=== PATIENT | male | born 1960 | race Caucasian/White ===

== ENCOUNTER 2019-04-30 09:21 | Outpatient (CLI) | payer OTHER, MEDICARE, SELFPAY ==
[2019-04-30 10:48] LABS: Alanine Aminotransferase 36 U/L (16-63); Albumin Level 4.5 g/dL (3.4-5.0); Alkaline Phosphatase 46 U/L (46-116); Anion Gap 16.5 mmol/L (7-16); Aspartate Amino Transferase 21 U/L (15-37); Bilirubin,Total 0.3 mg/dL (0.00-1.00); Blood Urea Nitrogen 19 mg/dL (7-18); Calcium 9.5 mg/dL (8.5-10.1); Carbon Dioxide 26 mmol/L (21-32); Chloride 104 mmol/L (98-108); Cholesterol 175 mg/dL (0-200); Creatine Kinase 197 U/L (39-308); Estimated Glomerular Filt Rate > 60; Glucose 110 mg/dL (70-99); HDL Direct 55 mg/dL (40-60); LDL Cholesterol Calculated 106 mg/dL (<130); Osmolality Calculated 297 mOsm/kg (285-295); Potassium 4.5 mmol/L (3.5-5.1); Sodium 142 mmol/L (136-145); Triglycerides 70 mg/dL (0-150)
== END 2019-04-30 09:22 | disposition home or self-care (01) ==
LOC: CHSLAB 09:26
PROVIDERS: PCP Family Medicine; Visit Provider Family Medicine
DX: E78.2 Mixed hyperlipidemia (principal)
CPT/HCPCS: 36415; 80053; 80061; 82550

== ENCOUNTER 2020-02-03 09:35 | Outpatient (CLI) | payer OTHER, MEDICARE, SELFPAY ==
--- NOTE | ~2020-02-03 | XR_ITS ---
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 TECHNIQUE: Right foot dorsoplantar, oblique projections obtained and reviewed. Right ankle frontal, lateral and oblique projections obtained and reviewed. There is no prior study for comparison. FINDINGS: Right metatarsal bones unremarkable. There is fusion with screws ridging the subtalar celio int. Osseous fusion of this joint also suspected. There are 3 other screws fusing midfoot joints, 2 o f which are fractured. Also osseous fusion of multiple midfoot joints. No evidence of metatarsal stre ss fracture. There are no bony erosions identified. There is medial tilt of the talus with respect to the tibial plafond and with evidence of moderate an kle joint osteoarthritis. IMPRESSION: 1. Surgical and osseous fusion of right hind and midfoot joints. 2. Two fractured midfoot screws. 3. Medial talar tilt at the ankle joint. Reviewed, dictated and finalized at location A. NDED INSURANCE CLERK IMPRESSION: 1. Surgical and osseous fusion of right hind and midfoot joints. 2. Two fractured midfoot screws. 3. Medial talar tilt at the ankle joint.
--- NOTE | ~2020-02-03 | XR_ITS ---
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 TECHNIQUE: Left foot dorsoplantar, oblique projections obtained and reviewed. Left ankle frontal, la teral and oblique projections obtained and reviewed. Correlation is made to contralateral foot, ankle same date. Comparison made to left ankle exam from 10/12/2018 FINDINGS: Surgical fusion of the subtalar joint with solid bone bridging. Surgical fusion hardware at the mid foot also with multiple joints demonstrate solid bone bridging. No hardware fracture. There is severe medial tilt of the talus at the ankle joint with chronic remodeling of the tibial lisa fond and advanced osteoarthritis. There is an old 5th metatarsal fracture. The toes are flexed. There are no bony erosions identified. There are no acute fractures identified. IMPRESSION: 1. Left mid and hindfoot arthrodesis. 2. Severe medial tilt to talus at the plafond, superimposed osteoarthritis. Reviewed, dictated and finalized at location A. LE MOLDER IMPRESSION: 1. Left mid and hindfoot arthrodesis. 2. Severe medial tilt to talus at the plafond, superimposed osteoarthritis.
== END 2020-02-03 09:36 | disposition home or self-care (01) ==
PROVIDERS: PCP Family Medicine; Visit Provider Podiatrist
DX: M21.6X1 Other acquired deformities of right foot (principal); M79.672 Pain in left foot; M79.671 Pain in right foot
CPT/HCPCS: 73610; 73620

== ENCOUNTER 2020-06-03 08:38 | Outpatient (CLI) | payer OTHER, MEDICARE, SELFPAY ==
[2020-06-03 08:50] LABS: Basophils Absolute Auto 0.03 K/mm3 (0.00-0.10); Basophils Percent Auto 0.7 % (0.0-1.0); Eosinophils Percent Auto 4.7 % (1.0-6.0); Hemoglobin 13.7 g/dL (14.0-18.0); Immature Granulocyte Absolute 0.01 K/mm3 (0.00-0.00); Immature Granulocyte Percent A 0.2 % (0.0-0.0); Lymphocytes Percent Auto 35.5 % (18.0-42.0); Mean Corpuscular HGB Conc 32.6 g/dL (32.0-36.0); Mean Corpuscular Hemoglobin 28.3 pg (27.0-31.0); Mean Corpuscular Volume 86.8 fL (78.0-102.0); Mean Platelet Volume 11.1 fl (8.7-11.0); Monocytes Percent Auto 9.5 % (2.0-11.0); Neutrophils Absolute Auto 2.1 K/mm3 (1.7-7.2); Neutrophils Percent Auto 49.4 % (50.0-70.0); Platelet Count Result 242 K/mm3 (150-420); Red Blood Count 4.84 M/mm3 (4.70-6.10); Red Cell Distribution Width 13.2 % (11.6-14.4); White Blood Count 4.2 K/mm3 (4.8-10.8)
[2020-06-03 09:30] LABS: Alanine Aminotransferase 38 U/L (16-63); Albumin Level 4.3 g/dL (3.4-5.0); Alkaline Phosphatase 44 U/L (46-116); Anion Gap 10 mmol/L (8-16); Aspartate Amino Transferase 18 U/L (15-37); Bilirubin,Total 0.4 mg/dL (0.00-1.00); Blood Urea Nitrogen 25 mg/dL (7-18); Carbon Dioxide 28 mmol/L (21-32); Chloride 101 mmol/L (98-108); Cholesterol 160 mg/dL (0-200); Estimated Glomerular Filt Rate > 60; Glucose 108 mg/dL (70-99); HDL Direct 46 mg/dL (40-60); LDL Cholesterol Calculated 97 mg/dL (<130); Osmolality Calculated 293 mOsm/kg (285-295); Potassium 4.5 mmol/L (3.5-5.1); Sodium 139 mmol/L (136-145); Total Protein 7.6 g/dL (6.4-8.2); Triglycerides 84 mg/dL (0-150)
== END 2020-06-03 08:39 | disposition home or self-care (01) ==
LOC: CHSLAB 08:40
PROVIDERS: PCP Family Medicine; Visit Provider Family Medicine
DX: N18.2 Chronic kidney disease, stage 2 (mild) (principal); E78.2 Mixed hyperlipidemia
CPT/HCPCS: 36415; 80053; 80061; 85025

== ENCOUNTER 2020-06-30 08:29 | Outpatient (CLI) | payer OTHER, MEDICARE, SELFPAY ==
[2020-06-30 08:40] LABS: Basophils Absolute Auto 0.03 K/mm3 (0.00-0.10); Basophils Percent Auto 0.7 % (0.0-1.0); Eosinophils Absolute Auto 0.22 K/mm3 (0.02-0.50); Eosinophils Percent Auto 5.1 % (1.0-6.0); Hemoglobin 13.2 g/dL (14.0-18.0); Immature Granulocyte Absolute 0.01 K/mm3 (0.00-0.00); Immature Granulocyte Percent A 0.2 % (0.0-0.0); Lymphocytes Absolute Auto 1.57 K/mm3 (1.10-4.50); Lymphocytes Percent Auto 36.3 % (18.0-42.0); Mean Corpuscular Hemoglobin 28.9 pg (27.0-31.0); Mean Corpuscular Volume 87.5 fL (78.0-102.0); Mean Platelet Volume 10.8 fl (8.7-11.0); Monocytes Absolute Auto 0.39 K/mm3 (0.10-0.90); Neutrophils Absolute Auto 2.1 K/mm3 (1.7-7.2); Neutrophils Percent Auto 48.7 % (50.0-70.0); Platelet Count Result 246 K/mm3 (150-420); Red Blood Count 4.57 M/mm3 (4.70-6.10); Red Cell Distribution Width 13.5 % (11.6-14.4); White Blood Count 4.3 K/mm3 (4.8-10.8)
== END 2020-06-30 08:30 | disposition home or self-care (01) ==
LOC: CHSLAB 08:34
PROVIDERS: PCP Family Medicine; Visit Provider Family Medicine
DX: E78.2 Mixed hyperlipidemia (principal); D72.819 Decreased white blood cell count, unspecified
CPT/HCPCS: 36415; 85025

== ENCOUNTER 2020-08-11 08:36 | Outpatient (CLI) | payer OTHER, MEDICARE, SELFPAY ==
[2020-08-11 09:01] LABS: Basophils Absolute Auto 0.02 K/mm3 (0.00-0.10); Basophils Percent Auto 0.5 % (0.0-1.0); Eosinophils Absolute Auto 0.21 K/mm3 (0.02-0.50); Eosinophils Percent Auto 4.8 % (1.0-6.0); Hematocrit 40.8 % (40.0-54.0); Hemoglobin 13.7 g/dL (14.0-18.0); Immature Granulocyte Absolute 0.01 K/mm3 (0.00-0.00); Immature Granulocyte Percent A 0.2 % (0.0-0.0); Lymphocytes Absolute Auto 1.61 K/mm3 (1.10-4.50); Lymphocytes Percent Auto 36.8 % (18.0-42.0); Mean Corpuscular HGB Conc 33.6 g/dL (32.0-36.0); Mean Corpuscular Hemoglobin 29.5 pg (27.0-31.0); Mean Corpuscular Volume 87.7 fL (78.0-102.0); Mean Platelet Volume 11.9 fl (8.7-11.0); Monocytes Absolute Auto 0.38 K/mm3 (0.10-0.90); Monocytes Percent Auto 8.7 % (2.0-11.0); Neutrophils Absolute Auto 2.1 K/mm3 (1.7-7.2); Platelet Count Result 246 K/mm3 (150-420); Red Blood Count 4.65 M/mm3 (4.70-6.10); Red Cell Distribution Width 13.2 % (11.6-14.4); White Blood Count 4.4 K/mm3 (4.8-10.8)
== END 2020-08-11 08:37 | disposition home or self-care (01) ==
PROVIDERS: PCP Family Medicine; Visit Provider Family Medicine
DX: D72.819 Decreased white blood cell count, unspecified (principal)
CPT/HCPCS: 36415; 85025

== ENCOUNTER 2020-09-28 09:01 | Outpatient (CLI) | payer OTHER, MEDICARE, SELFPAY ==
[2020-09-28 09:24] LABS: Basophils Absolute Auto 0.03 K/mm3 (0.00-0.10); Basophils Percent Auto 0.7 % (0.0-1.0); Eosinophils Absolute Auto 0.18 K/mm3 (0.02-0.50); Eosinophils Percent Auto 4.3 % (1.0-6.0); Hematocrit 41.5 % (40.0-54.0); Hemoglobin 13.7 g/dL (14.0-18.0); Immature Granulocyte Absolute 0.01 K/mm3 (0.00-0.00); Immature Granulocyte Percent A 0.2 % (0.0-0.0); Lymphocytes Percent Auto 38.3 % (18.0-42.0); Mean Corpuscular Volume 87.9 fL (78.0-102.0); Mean Platelet Volume 11.4 fl (8.7-11.0); Monocytes Absolute Auto 0.35 K/mm3 (0.10-0.90); Monocytes Percent Auto 8.4 % (2.0-11.0); Neutrophils Percent Auto 48.1 % (50.0-70.0); Platelet Count Result 261 K/mm3 (150-420); Red Blood Count 4.72 M/mm3 (4.70-6.10); Red Cell Distribution Width 13.2 % (11.6-14.4); White Blood Count 4.2 K/mm3 (4.8-10.8)
[2020-09-28 10:37] LABS: Alanine Aminotransferase 34 U/L (16-63); Albumin Level 4.3 g/dL (3.4-5.0); Alkaline Phosphatase 43 U/L (46-116); Anion Gap 12 mmol/L (8-16); Aspartate Amino Transferase 19 U/L (15-37); Bilirubin,Total 0.3 mg/dL (0.00-1.00); Blood Urea Nitrogen 21 mg/dL (7-18); Calcium 9.5 mg/dL (8.5-10.1); Carbon Dioxide 25 mmol/L (21-32); Chloride 105 mmol/L (98-108); Estimated Glomerular Filt Rate > 60; Ferritin 398 ng/mL (26-388); Folic Acid 18.2 ng/mL (8.6->20); Glucose 104 mg/dL (70-99); Lactate Dehydrogenase 127 U/L (85-227); Osmolality Calculated 297 mOsm/kg (285-295); Potassium 4.9 mmol/L (3.5-5.1); Sodium 142 mmol/L (136-145); Total Protein 7.4 g/dL (6.4-8.2); Vitamin B12 303 pg/mL (193-986)
== END 2020-09-28 09:02 | disposition home or self-care (01) ==
LOC: CHSLAB 09:04
PROVIDERS: PCP Family Medicine; Visit Provider Internal Medicine Hematology & Oncology
DX: D72.819 Decreased white blood cell count, unspecified (principal); D50.9 Iron deficiency anemia, unspecified
CPT/HCPCS: 36415; 80053; 82607; 82728; 82746; 83615; 85025; 86038

== ENCOUNTER 2020-10-05 07:45 | Outpatient (CLI) | payer OTHER, MEDICARE, SELFPAY ==
--- NOTE | ~2020-10-05 | US_ITS ---
EXAMINATION: US abdomen complete DATE: 10/05/2020 08:17 INDICATION: Leukopenia TECHNIQUE: Multiple grayscale and Doppler ultrasound images of the abdomen were obtained. COMPARISON: None available FINDINGS: The head and body of the pancreas are normal. The pancreatic tail is obscured by bowel gas. The liver is normal with normal echogenicity and echotexture. No surface nodularity. Normal hepatope betsy flow in the main portal vein. The gallbladder is normal with no abnormal wall thickening, pericho lecystic fluid or stones. The normal common bile duct measures 3 mm. There was no sonographic Valdivia sign. The visualized portions of the aorta and inferior vena cava are normal. The right kidney measures 10.1 x 5.6 x 6.0 cm and contains a 2.5 cm cyst. The left kidney measures 10 .7 x 6.0 x 5.6 cm. The kidneys demonstrate normal parenchymal echogenicity. There is no hydronephrosi s. The spleen is normal in appearance and measures 10.9 cm. IMPRESSION: 1. No sonographic correlate for the patient's symptoms. Reviewed, dictated and finalized at location A.
== END 2020-10-05 07:46 | disposition home or self-care (01) ==
LOC: CHSIMG 07:47
PROVIDERS: PCP Family Medicine; Visit Provider Internal Medicine Hematology & Oncology
DX: D72.819 Decreased white blood cell count, unspecified (principal)
CPT/HCPCS: 76700

== ENCOUNTER 2020-12-28 15:49 | Outpatient (CLI) | payer OTHER, MEDICARE, SELFPAY ==
--- NOTE | ~2020-12-28 | XR_ITS ---
XR knee RT 3V 12/28/2020 16:08 Indication: Right knee pain Procedure: 3 views right knee Comparison: No prior studies for comparison. Findings: No fracture, subluxation or dislocation. No significant joint space narrowing. No focal sof t tissue abnormality. No foreign bodies. Impression: 1: No significant bone or joint abnormality. Reviewed, dictated and finalized at location A. Impression: 1: No significant bone or joint abnormality.
== END 2020-12-28 15:50 | disposition home or self-care (01) ==
LOC: CHSIMG 15:52
PROVIDERS: PCP Family Medicine; Visit Provider Family Medicine
DX: M25.561 Pain in right knee (principal)
CPT/HCPCS: 73562

== ENCOUNTER 2021-02-02 11:21 | Outpatient (CLI) | payer OTHER, MEDICARE, SELFPAY ==
[2021-02-02 11:39] LABS: Basophils Absolute Auto 0.04 K/mm3 (0.00-0.10); Basophils Percent Auto 0.6 % (0.0-1.0); Eosinophils Absolute Auto 0.14 K/mm3 (0.02-0.50); Eosinophils Percent Auto 2.2 % (1.0-6.0); Hematocrit 42.8 % (40.0-54.0); Hemoglobin 14.2 g/dL (14.0-18.0); Immature Granulocyte Absolute 0.02 K/mm3 (0.00-0.00); Immature Granulocyte Percent A 0.3 % (0.0-0.0); Lymphocytes Absolute Auto 1.52 K/mm3 (1.10-4.50); Lymphocytes Percent Auto 24.1 % (18.0-42.0); Mean Corpuscular HGB Conc 33.2 g/dL (32.0-36.0); Mean Corpuscular Hemoglobin 29.2 pg (27.0-31.0); Mean Corpuscular Volume 88.1 fL (78.0-102.0); Mean Platelet Volume 11.5 fl (8.7-11.0); Monocytes Percent Auto 6.3 % (2.0-11.0); Neutrophils Absolute Auto 4.2 K/mm3 (1.7-7.2); Neutrophils Percent Auto 66.5 % (50.0-70.0); Platelet Count Result 270 K/mm3 (150-420); Red Blood Count 4.86 M/mm3 (4.70-6.10); Red Cell Distribution Width 13.5 % (11.6-14.4); White Blood Count 6.3 K/mm3 (4.8-10.8)
[2021-02-02 13:13] LABS: Anion Gap 11 mmol/L (8-16); Blood Urea Nitrogen 22 mg/dL (7-18); Calcium 9.3 mg/dL (8.5-10.1); Carbon Dioxide 27 mmol/L (21-32); Chloride 103 mmol/L (98-108); Estimated Glomerular Filt Rate > 60; Ferritin 592 ng/mL (26-388); Glucose 106 mg/dL (70-99); Iron 88 ug/dL (65-175); Osmolality Calculated 295 mOsm/kg (285-295); Percent Iron Saturation 22 % (12-57); Sodium 141 mmol/L (136-145); Vitamin B12 472 pg/mL (193-986)
[2021-02-02 13:16] LABS: Folic Acid > 20.0 ng/mL (8.6->20)
== END 2021-02-02 11:22 | disposition home or self-care (01) ==
LOC: CHSLAB 11:23
PROVIDERS: PCP Family Medicine; Visit Provider Internal Medicine Hematology & Oncology
DX: D64.9 Anemia, unspecified (principal)
CPT/HCPCS: 36415; 80048; 82607; 82728; 82746; 83540; 83550; 85025

== ENCOUNTER 2021-02-11 10:45 | Outpatient (CLI) | payer OTHER, MEDICARE, SELFPAY ==
[2021-02-16 18:30] LABS: Testosterone Free 68.3 pg/mL (35.0-155.0); Testosterone Total 371 ng/dL (250-1100)
== END 2021-02-11 10:46 | disposition home or self-care (01) ==
PROVIDERS: PCP Family Medicine; Visit Provider Internal Medicine Hematology & Oncology
DX: R53.83 Other fatigue (principal)
CPT/HCPCS: 36415; 84402; 84403

== ENCOUNTER 2021-07-09 09:05 | Outpatient (CLI) | payer OTHER, MEDICARE, SELFPAY ==
[2021-07-09 09:53] LABS: Alanine Aminotransferase 42 U/L (16-63); Albumin Level 4.4 g/dL (3.4-5.0); Alkaline Phosphatase 47 U/L (46-116); Anion Gap 9 mmol/L (8-16); Aspartate Amino Transferase 25 U/L (15-37); Bilirubin,Total 0.4 mg/dL (0.00-1.00); Blood Urea Nitrogen 20 mg/dL (7-18); Calcium 9.3 mg/dL (8.5-10.1); Carbon Dioxide 28 mmol/L (21-32); Chloride 103 mmol/L (98-108); Cholesterol 192 mg/dL (0-200); Estimated Glomerular Filt Rate > 60; Glucose 111 mg/dL (70-99); HDL Direct 54 mg/dL (40-60); LDL Cholesterol Calculated 117 mg/dL (<130); Osmolality Calculated 293 mOsm/kg (285-295); Potassium 4.1 mmol/L (3.5-5.1); Sodium 140 mmol/L (136-145); Thyroid Stimulating Hormone 1.08 uIU/mL (0.36-3.74); Total Protein 8.2 g/dL (6.4-8.2); Triglycerides 105 mg/dL (0-150)
== END 2021-07-09 09:06 | disposition home or self-care (01) ==
LOC: CHSLAB 09:08
PROVIDERS: PCP Family Medicine; Visit Provider Family Medicine
DX: E78.1 Pure hyperglyceridemia (principal)
CPT/HCPCS: 36415; 80053; 80061; 84443

== ENCOUNTER 2022-09-30 08:49 | Outpatient (CLI) | payer OTHER, MEDICARE, SELFPAY ==
[2022-09-30 09:05] LABS: Basophils Absolute Auto 0.04 K/mm3 (0.00-0.10); Basophils Percent Auto 0.7 % (0.0-1.0); Eosinophils Absolute Auto 0.29 K/mm3 (0.02-0.50); Eosinophils Percent Auto 5.4 % (1.0-6.0); Hematocrit 40.3 % (40.0-54.0); Hemoglobin 13.7 g/dL (14.0-18.0); Immature Granulocyte Absolute 0.03 K/mm3 (0.00-0.00); Immature Granulocyte Percent A 0.6 % (0.0-0.0); Lymphocytes Absolute Auto 1.62 K/mm3 (1.10-4.50); Mean Corpuscular Hemoglobin 30.2 pg (27.0-31.0); Mean Platelet Volume 11.2 fl (8.7-11.0); Monocytes Absolute Auto 0.44 K/mm3 (0.10-0.90); Monocytes Percent Auto 8.1 % (2.0-11.0); Neutrophils Percent Auto 55.2 % (50.0-70.0); Platelet Count Result 252 K/mm3 (150-420); Red Blood Count 4.53 M/mm3 (4.70-6.10); Red Cell Distribution Width 13.5 % (11.6-14.4); White Blood Count 5.4 K/mm3 (4.8-10.8)
[2022-09-30 09:56] LABS: Alanine Aminotransferase 40 U/L (16-63); Albumin Level 4.3 g/dL (3.4-5.0); Alkaline Phosphatase 47 U/L (46-116); Anion Gap 9 mmol/L (8-16); Aspartate Amino Transferase 18 U/L (15-37); Bilirubin,Total 0.3 mg/dL (0.00-1.00); Blood Urea Nitrogen 20 mg/dL (7-18); Calcium 9.5 mg/dL (8.5-10.1); Carbon Dioxide 27 mmol/L (21-32); Chloride 106 mmol/L (98-108); Cholesterol 167 mg/dL (0-200); Estimated Glomerular Filt Rate > 60; Glucose 105 mg/dL (70-99); HDL Direct 47 mg/dL (40-60); LDL Cholesterol Calculated 99 mg/dL (<130); Osmolality Calculated 296 mOsm/kg (285-295); Potassium 4.7 mmol/L (3.5-5.1); Prostate Specific Antigen 0.7 ng/mL (< OR = 4.0); Sodium 142 mmol/L (136-145); Total Protein 7.4 g/dL (6.4-8.2); Triglycerides 106 mg/dL (0-150)
[2022-09-30 14:23] LABS: Ferritin 593 ng/mL (26-388); Iron 88 ug/dL (65-175); Percent Iron Saturation 23 % (12-57)
== END 2022-09-30 08:50 | disposition home or self-care (01) ==
LOC: CHSLAB 08:51
PROVIDERS: PCP Family Medicine; Visit Provider Family Medicine
DX: N18.2 Chronic kidney disease, stage 2 (mild) (principal); E78.2 Mixed hyperlipidemia; Z12.5 Encounter for screening for malignant neoplasm of prostate
CPT/HCPCS: 36415; 80053; 80061; 82728; 83540; 83550; 84153; 85025; G0103

== ENCOUNTER 2023-04-04 10:06 | Outpatient (CLI) | payer OTHER, MEDICARE, SELFPAY | END 2023-04-04 10:07 | disposition home or self-care (01) | PROVIDERS: PCP Family Medicine; Visit Provider Specialist | DX: C44.311 Basal cell carcinoma of skin of nose (principal) | CPT/HCPCS: 88305 ==

== ENCOUNTER 2023-04-17 07:34 | Outpatient (CLI) | payer OTHER, MEDICARE, SELFPAY ==
--- NOTE | 2023-04-17 07:43 | EST_ITS ---
Patient Info Name: FRANTZ MAI Age: 62 years : 1960 Gender: Male Ht: 70 in Wt: 195 lbs BSA: 2.11 m2 HR: 62 bpm BP: 125 / 77 mmHg Heart Rhythm: Sinus Rhythm Technical Quality: Good Exam Date: 04/17/2023 8:40 AM Exam Location: Echo Lab Exam Type: Stress Test Study Info A regadenoson stress test was performed. History/Risk Factors Dyslipidemia: Yes Family History: Coronary Artery Disease Summary 1. 1. Negative lexiscan stress test for ischemic ST changes by ECG criteria. 2. 2. Stable hemodynamics throughout the test. 3. 3. Nuclear scan to follow and will be reported separately. Please correlate with it. Protocol: LEXISCAN Stress ECG Details Stage: REST Duration (min): 1 min : 35 sec HR (bpm): 60 SBP (mmHg): 125 DBP (mmHg): 77 Stage: REST Duration (min): 38 min : 17 sec HR (bpm): 69 SBP (mmHg): 125 DBP (mmHg): 77 Stage: STAGE 1 Duration (min): 0 min : 15 sec HR (bpm): 69 SBP (mmHg): 125 DBP (mmHg): 77 Stage: RECOVERY Duration (min): 0 min : 44 sec HR (bpm): 86 SBP (mmHg): 125 DBP (mmHg): 77 Stage: RECOVERY Duration (min): 1 min : 44 sec HR (bpm): 76 SBP (mmHg): 125 DBP (mmHg): 77 Stage: RECOVERY Duration (min): 2 min : 44 sec HR (bpm): 78 SBP (mmHg): 153 DBP (mmHg): 83 Stage: RECOVERY Duration (min): 3 min : 44 sec HR (bpm): 77 SBP (mmHg): 147 DBP (mmHg): 81 Stage: RECOVERY Duration (min): 4 min : 44 sec HR (bpm): 72 SBP (mmHg): 136 DBP (mmHg): 86 Stage: RECOVERY Duration (min): 5 min : 44 sec HR (bpm): 71 SBP (mmHg): 137 DBP (mmHg): 82 Stage: RECOVERY Duration (min): 6 min : 21 sec HR (bpm): --- SBP (mmHg): 137 DBP (mmHg): 82 Rest HR: 69 bpm Peak HR: 86 bpm Rest Sys BP: 125 mmHg Peak Sys BP: 153 mmHg Max Pred HR: 158 bpm % Max Pred HR: 54 % Target HR: 134 bpm Max RPP: 13,158 bpm*mmHg BP Response: Normal blood pressure response Termination Reason: Completed protocol Cardiac Symptoms: None Total Time: 0 min : 15 sec Rest Crews BP: 77 mmHg Peak Crews BP: 83 mmHg Total Dose: 0.4 mg Resting ECG Normal sinus rhythm - normal ECG. Stress ECG No abnormal ST/T wave changes. Arrhythmias Occasional PVCs. Report Signatures
--- NOTE | 2023-04-17 12:53 | WPDCARIOSTRE ---
Nuclear Stress Test INDICATIONS Indications: Chest pain PROCEDURE Procedure Performed: Myocardial Perf Spect-Multi Procedure: Patient underwent a lexiscan stress test and immediately was injected with 30.5 mCi of cardiolyte. Multiple tomographic images were obtained. There is no perfusion defect with stress imaging. A separate resting images were obtained after patient was injected with 10 mCi of cardiolyte. Multiple tomographic images were obtained. There is no perfusion defect with rest imaging. CONCLUSION Conclusion: 1. Normal myocardial perfusion imaging demonstrating no perfusion defects with stress or rest imaging. 2. No evidence of reversible ischemia. 3. Left ventriculogram demonstrates normal measured ejection fraction of 63% with no wall motion abnormalities. 4. TID score 0.92 is normal.
== END 2023-04-17 07:35 | disposition home or self-care (01) ==
LOC: CHSCARD 07:36
PROVIDERS: PCP Internal Medicine; Visit Provider Internal Medicine
DX: R00.2 Palpitations (principal)
CPT/HCPCS: 78452; 93017; A9502; J2785

== ENCOUNTER 2023-09-21 11:59 | Outpatient (CLI) | payer OTHER, MEDICARE, SELFPAY ==
--- NOTE | ~2023-09-21 | XR_ITS ---
Lumbosacral Spine: AP and lateral views Clinical History: Pain Findings: The normal lordotic curve is maintained. No fracture evident. There is 6 mm retrolisthesis of L2 over L3. There is 6 mm anterolisthesis of L4 over L5. There is 8 mm anterolisthesis of L5 over S1. There is moderate to advanced degenerative disc narrowing at L2-L3. There is advanced facet arthr opathy from L4 through S1. The sacroiliac joints are normally outlined. Impression: Moderate to advanced degenerative spondylosis as above. Multiple listheses, as detailed above. Reviewed, dictated and finalized at location M. Impression: Moderate to advanced degenerative spondylosis as above. Multiple listheses, as detailed above.
[2023-09-21 12:20] LABS: Basophils Absolute Auto 0.03 K/mm3 (0.00-0.10); Basophils Percent Auto 0.5 % (0.0-1.0); Eosinophils Absolute Auto 0.25 K/mm3 (0.02-0.50); Eosinophils Percent Auto 4.4 % (1.0-6.0); Hematocrit 39.1 % (40.0-54.0); Immature Granulocyte Absolute 0.02 K/mm3 (0.00-0.00); Immature Granulocyte Percent A 0.3 % (0.0-0.0); Lymphocytes Absolute Auto 1.65 K/mm3 (1.10-4.50); Lymphocytes Percent Auto 28.8 % (18.0-42.0); Mean Corpuscular HGB Conc 33.2 g/dL (32-36); Mean Corpuscular Hemoglobin 29.2 pg (27.0-31.0); Mean Corpuscular Volume 87.9 fL (78.0-102.0); Mean Platelet Volume 11.8 fl (8.7-11.0); Monocytes Absolute Auto 0.43 K/mm3 (0.10-0.90); Monocytes Percent Auto 7.5 % (2.0-11.0); Neutrophils Absolute Auto 3.34 K/mm3 (1.70-7.20); Neutrophils Percent Auto 58.5 % (50.0-70.0); Platelet Count Result 241 K/mm3 (150-420); Red Blood Count 4.45 M/mm3 (4.70-6.10); Red Cell Distribution Width 13.5 % (11.6-14.4); White Blood Count 5.7 K/mm3 (4.8-10.8)
[2023-09-21 13:24] LABS: Alanine Aminotransferase 31 U/L (16-63); Albumin Level 4.3 g/dL (3.4-5.0); Alkaline Phosphatase 44 U/L (46-116); Amylase 36 U/L (25-115); Anion Gap 11 mmol/L (4-12); Aspartate Amino Transferase 15 U/L (15-37); Bilirubin,Total 0.2 mg/dL (0.00-1.00); Blood Urea Nitrogen 18 mg/dL (7-18); Calcium 9.6 mg/dL (8.5-10.1); Carbon Dioxide 25 mmol/L (21-32); Chloride 104 mmol/L (98-108); Estimated Glomerular Filt Rate > 60; Glucose 111 mg/dL (70-99); Lipase 27 U/L (16-77); Osmolality Calculated 292 mOsm/kg (285-295); Potassium 4.2 mmol/L (3.5-5.1); Sodium 140 mmol/L (136-145); Total Protein 7.6 g/dL (6.4-8.2)
== END 2023-09-21 12:00 | disposition home or self-care (01) ==
LOC: CHSLAB 12:02
PROVIDERS: PCP Family Medicine; Visit Provider Family Medicine
DX: R10.9 Unspecified abdominal pain (principal); M54.14 Radiculopathy, thoracic region; M43.06 Spondylolysis, lumbar region
CPT/HCPCS: 36415; 72100; 80053; 82150; 83690; 85025

== ENCOUNTER 2023-09-22 11:39 | Outpatient (CLI) | payer OTHER, MEDICARE, SELFPAY ==
--- NOTE | ~2023-09-22 | XR_ITS ---
3 VIEWS THORACIC SPINE Ordering provider: nAdrzej Campos MD History: . Radiculopathy, thoracic region/ Upper back pain x1 mo, NKI . Comparison: None. FINDINGS: VERTEBRAL BODIES: Normal height and alignment. No visible fracture or subluxation. Mild degenerative changes. DISK SPACES: Normal. SOFT TISSUES: Normal. IMPRESSION: No acute osseous abnormality of the thoracic spine. Reviewed, dictated and finalized at location A.
== END 2023-09-22 11:40 | disposition home or self-care (01) ==
LOC: CHSIMG 11:53
PROVIDERS: PCP Family Medicine; Visit Provider Family Medicine
DX: M54.14 Radiculopathy, thoracic region (principal)
CPT/HCPCS: 72072

== ENCOUNTER 2023-09-27 07:58 | Outpatient (CLI) | payer OTHER, MEDICARE, SELFPAY ==
[2023-09-27 09:00] LABS: Alanine Aminotransferase 23 U/L (16-63); Albumin Level 4.4 g/dL (3.4-5.0); Alkaline Phosphatase 44 U/L (46-116); Anion Gap 11 mmol/L (4-12); Aspartate Amino Transferase 20 U/L (15-37); Bilirubin,Total 0.4 mg/dL (0.00-1.00); Blood Urea Nitrogen 17 mg/dL (7-18); Calcium 9.3 mg/dL (8.5-10.1); Carbon Dioxide 26 mmol/L (21-32); Chloride 102 mmol/L (98-108); Cholesterol 196 mg/dL (0-200); Estimated Glomerular Filt Rate > 60; Glucose 109 mg/dL (70-99); HDL Direct 62 mg/dL (40-60); LDL Cholesterol Calculated 108 mg/dL (<130); Osmolality Calculated 290 mOsm/kg (285-295); Potassium 4.1 mmol/L (3.5-5.1); Prostate Specific Antigen 0.8 ng/mL (< OR = 4.0); Sodium 139 mmol/L (136-145); Thyroid Stimulating Hormone 1.08 uIU/mL (0.36-3.74); Total Protein 7.4 g/dL (6.4-8.2); Triglycerides 130 mg/dL (0-150)
== END 2023-09-27 07:59 | disposition home or self-care (01) ==
LOC: CHSLAB 08:01
PROVIDERS: PCP Family Medicine; Visit Provider Family Medicine
DX: E78.2 Mixed hyperlipidemia (principal); Z12.5 Encounter for screening for malignant neoplasm of prostate
CPT/HCPCS: 36415; 80053; 80061; 84153; 84443; G0103

== ENCOUNTER 2023-09-28 09:38 | Outpatient (CLI) | payer OTHER, MEDICARE, SELFPAY ==
--- NOTE | ~2023-09-28 | MR_ITS ---
Procedure: MR thoracic spine wo con Ordering provider: Andrzej Campos MD History: . thoracic radiculopathy,NEUROPATHY IN LE . Comparison: None. Technique: MRI thoracic spine without contrast. FINDINGS: SPINAL CORD: Normal. VERTEBRAL BODIES: Normal height and alignment. No compression fracture. Normal marrow signal. DISK SPACES: Normal. Multilevel endplate changes seen in the lower thoracic area anteriorly. Multilevel degenerative disc disease seen in the cervical area. Facet STENOSIS: None. PARASPINOUS SOFT TISSUES: Normal. IMPRESSION: No compression fracture or stenosis of the thoracic spine. No intervertebral foraminal narrowing. Reviewed, dictated and finalized at location A. IMPRESSION: No compression fracture or stenosis of the thoracic spine. No intervertebral fo raminal narrowing.
== END 2023-09-28 09:39 | disposition home or self-care (01) ==
LOC: CHSIMG 09:39
PROVIDERS: PCP Family Medicine; Visit Provider Family Medicine
DX: M54.14 Radiculopathy, thoracic region (principal)
CPT/HCPCS: 72146

== ENCOUNTER 2023-12-14 13:55 | Outpatient (CLI) | payer OTHER, MEDICARE, SELFPAY ==
--- NOTE | ~2023-12-14 | XR_ITS ---
XR abdomen obstructive series Ordering provider: Andrzej Campos MD History: . abdominal pain midline x two weeks . Comparison: None. FINDINGS: BOWEL: Nonobstructive bowel gas pattern. ORGANOMEGALY: None. SIGNIFICANT PATHOLOGIC CALCIFICATIONS: None. OTHER: No free air is seen under the diaphragm. Degenerative changes of the spine. Levoscoliosis. IMPRESSION: NO ACUTE ABDOMINAL FINDINGS. Reviewed, dictated and finalized at location A.
== END 2023-12-14 13:56 | disposition home or self-care (01) ==
LOC: CHSIMG 13:56
PROVIDERS: PCP Family Medicine; Visit Provider Family Medicine
DX: R10.84 Generalized abdominal pain (principal)
CPT/HCPCS: 74019

== ENCOUNTER 2023-12-18 08:12 | Outpatient (CLI) | payer OTHER, MEDICARE, SELFPAY ==
--- NOTE | ~2023-12-18 | US_ITS ---
COMPLETE ABDOMINAL ULTRASOUND Ordering provider: Andrzej Campos MD History: . ABDOMINAL PAIN . Comparison: None. FINDINGS: LIVER: Normal size and increased echotexture suggestive of fat infiltration. No focal hepatic lesions or perihepatic fluid collections are identified. Normal flow of the portal vein. GALLBLADDER: Unremarkable. No evidence for stones, sludge, gallbladder wall thickening or pericholecy stic fluid collections. A negative sonographic Valdivia's sign was noted. BILIARY DUCTS: No evidence for intra or extrahepatic biliary dilation. Common bile duct measures 2.8 mm in diameter which is within normal limits. PANCREAS: Normal echotexture and size. The head measures 3.2 cm. SPLEEN: Normal size, echotexture and contour and measures 11.7 cm in length. KIDNEYS: Right measures 9.3x 6.1x 5.4 cm in length and the left 11x 4.5x 5.6 cm in length. There is n o evidence for hydronephrosis, solid renal mass, renal calculi or perinephric fluid collections. Simp le right renal cyst is seen measuring 3.3 x 3 x 3.2 cm and seen medially. Complex hypoechoic area is seen measuring 2.2 the left kidney may be hemorrhagic cyst. Follow-up advised. UPPER ABDOMINAL AORTA: Normal in caliber. Proximal aorta measures 2.3 cm. IVC: Patent. FREE FLUID: None. IMPRESSION: Fat infiltration of the liver. Possible hemorrhagic cyst in the left kidney. Follow-up advised. Simpl e Right renal cyst. Otherwise, Unremarkable complete ultrasound of the abdomen. Reviewed, dictated and finalized at location A. IMPRESSION: Fat infiltration of the liver. Possible hemorrhagic cyst in the left kidney. Fo llow-up advised. Simple Right renal cyst. Otherwise, Unremarkable complete ultr asound of the abdomen.
== END 2023-12-18 08:13 | disposition home or self-care (01) ==
PROVIDERS: PCP Family Medicine; Visit Provider Family Medicine
DX: R10.84 Generalized abdominal pain (principal); K76.0 Fatty (change of) liver, not elsewhere classified; N28.1 Cyst of kidney, acquired
CPT/HCPCS: 76700

== ENCOUNTER 2024-11-07 08:46 | Outpatient (CLI) | payer OTHER, MEDICARE, SELFPAY ==
--- OUTSIDE RECORDS SUMMARY | 2024-11-07 08:54 | XMS_ITS | Encounter Summary ---
Author Organization [employer] Address [address] [place] [address] Care Team Providers Care Product Safety And Standards Engineer Name Role Phone [facility], External Provider Primary Care Provider Alexy orellana Encounter Details Date Type Department Care Team (Latest Contact Info) Description 04/14/2000 Outpatient Historical HIS OBSERVATION BED Fili Cardenas MD NO ADDRESS ON FILE Other joint derangement, not elsewhere classified, ankle and foot (Primary Dx) Social History Tobacco Use Types Packs/Day Years Used Date Smoking Tobacco: Never Assessed Sex and Gender Information Value Date Recorded Sex Assigned at Not on file 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
--- OUTSIDE RECORDS SUMMARY | 2024-11-07 08:55 | XMS_ITS | Clinical Summary ---
Author Organization [facility] Address [address] [place] [id number] Care Team Providers Care Drapery Examiner Name Role Phone Andrzej Campos MD Primary Care Provide r Allergies No known active allergies Medications tamsulosin (FLOMAX) 0.4 mg extended release capsuleIndicatio ns:benign prostatic hyperplasia with lower urinary tract sx Take 0.4 mg by mouth every morning 1 Active pregabalin (LYRICA) 75 mg capsule Take 75 mg by mouth 2 (two) times a day 1 Active metroNIDAZOLE (METROGEL) 0.75 % gelIndications:A cne Rosacea Apply 1 application topically as needed 2 Active gemfibroziL (LOPID) 600 mg tabletIndication s:hypertriglycer idemia Take 600 mg by mouth 2 (two) times a day 1 Active cyclobenzaprine (FLEXERIL) 10 mg tabletIndication s:Muscle Spasm Take 10 mg by mouth nightly 1 Active traZODone (DESYREL) 50 mg tabletIndication s:insomnia associated with depression Take 50 mg by mouth nightly 2 Active ferrous sulfate (IRON ORAL) Take 1 tablet by mouth every morning Active cyanocobalamin, vitamin B-12, (VITAMIN B-12 ORAL) Take 1 tablet by mouth every morning Active cetirizine (ZyrTEC) 10 mg tablet Take 10 mg by mouth as needed for allergies Active HYDROcodone-acet aminophen (NORCO) 5-325 mg per tabletIndication s:Pain Take 2 tablets by mouth every 4 (four) hours as needed for pain for up to 40 doses 40 tablet 2 Active Senna Laxative 8.6 mg tablet TAKE 1 TABLET BY MOUTH EVERY DAY 30 tablet 2 Active oxyCODONE-acetam inophen (PERCOCET) 7.5-325 mg per tablet TAKE ONE TAB BY MOUTH EVERY 4 HOURS NEEDED FOR SEVERE PAIN 2 Active traMADoL (ULTRAM) 50 mg tablet 0 2 Active triamcinolone (KENALOG) 0.1 % cream APPLY TWICE DAILY NEEDED TO ECZEMA ON BODY 2 Active aspirin 325 mg enteric coated tablet TAKE 1 TABLET BY MOUTH EVERY DAY 30 tablet 2 Active Paxlovid, EUA, tablets,dose pack tablets in a dose pack (EUA) TAKE 2 TABLETS (NIRMATRELVIR) AND TAKE 1 TABLET (RITONAVIR) BY MOUTH TWICE A DAY FOR 5 DAYS 3 Active Active Problems Problem Noted Date Diagnosed Date Arthritis of left ankle 10/03/2021 Depression 09/21/2021 Ankle arthritis 07/15/2021 Overview (07/15/2021): Added automatically from request for surgery [id number] Normocytic anemia 10/16/2020 Peripheral neuropathy 10/16/2020 Leukopenia 09/25/2020 Surgical History Surgery Date Site/Laterality Comments ANKLE SURGERY Right Three times , last surgery in 1999 ANKLE SURGERY Right 2012 CARPAL TUNNEL RELEASE 2012 ARTHRODESIS triple arthrodesis on L Medical History Medical History Date Comments Arthritis Neuromuscular disorder Peripheral neuropathy Family History Medical History Relation Name Comments Arthritis Father Cancer Father Arthritis Mother Heart disease Mother Arthritis Sister Heart disease Sister Anesthesia problems Neg Hx Relation Name Status Comments Father Mother Sister Social History Tobacco Use Types Packs/Day Years Used Date Smoking Tobacco: Never Smokeless Tobacco: Never AUDIT-C Answer Date Recorded Frequency of Alcohol Consumption Not on file 10/04/2021 Q2: How many drinks containi ng alcohol do you have on a typical day when you are drinking? 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 Gender Identity Not on file Sexual Orientation Not on file Obstetrics History Last Filed Vital Signs Vital Sign Reading Time Taken Comments Blood Pressure 118/75 10/05/2021 7:30 AM CDT Pulse 75 10/05/2021 7:30 AM CDT Temperature 36.6 C (97.9 F) 10/05/2021 7:30 AM CDT Respiratory Rate 18 10/05/2021 7:30 AM CDT Oxygen Saturation 96% 10/05/2021 7:30 AM CDT Inhaled Oxygen Concentration - - Weight 85.9 kg (189 lb 6 oz) 12/19/2022 11:05 AM CDT Height 175.3 cm (5' 9.02) 12/19/2022 11:05 AM C DT Body Mass Index 27.95 12/19/2022 11:05 AM CDT Plan of Treatment Health Maintenance Due Date Last Done Comments Colon Cancer Screening-Colonoscopy 1960 Depression Screening 1960 Hepatitis C Screening 1960 Prostate Cancer Screening-PSA 1960 Hepatitis B Screening 1978 Regular Well Visit/Exam 18-64 1978 Zoster Vaccine (1 of 2) 2010 Covid-19 Vaccine ( season) 2023 03/17/2021, 06/12/2020, 05/13/2020 DTaP/Tdap/Td Vaccine (2 - Td or Tdap) 10/06/2024 10/06/2014 Influenza Vaccine (#1) 2024 , 03/31/2020, 11/27/2018, Additional history exists Pneumococcal vaccine <65 Aged Out No longer eligible based on patient's age to complete this topic Medical Devices Implanted Type Area Solar Lab Technician Device Identifier Shelf Expiration Date Model / Serial / Lot Feet Bilatera l: Foot Description:Screws Orthohelix Screw L/T 85mm 7mm Bn Ankl/Ft [id number] - [id number] Implanted:Qty: 1 on 10/04/2021 by Mik Beckford MD at [facility] [place] Left: Foot Orthohelix [id number] / / [employer] Graft Bone Augment 3cc Allograft Injectable Kit [id number] - [id number] Implanted:Qty: 1 on 10/04/2021 by Mik Beckford MD at [facility] [place] [employer] 10/03/2022 [id number] / / [id number] Description:Implant pause pe rformed [employer] 876p-2000 Ignite Power Mix Injectable Graft 20ml Bone Demineralized Bone - [id number] - [id number] Implanted:Qty: 1 on 10/04/2021 by Mik Beckford MD at [facility] [place] Left: Foot [employer] 01/20/2026 [id number] / [id number] / Description:Implant pause pe rformed [employer] Plate Bone Compression Locking Fusion Ortholoc 3di 82mm Ti [id number] - [id number] Implanted:Qty: 1 on 10/04/2021 by Mik Beckford MD at [facility] [place] Left: Foot [employer] [id number] / / Description:[id number] flagged [employer] Ortholoc 3.5mm 2.8mm 26mm Lock On [place] Polyaxial Self Tap Midfoot [id number] - [id number] Implanted:Qty: 2 on 10/04/2021 by Mik Beckford MD at [facility] [place] Left: Foot [employer] [id number] / / [employer] Salvation Ortholoc 3di 4.5mm 34mm Foot Ankle Cortical Low Profile [id number] - [id number] Implanted:Qty: 1 on 10/04/2021 by Mik Beckford MD at [facility] [place] Left: Foot [employer] [id number] / / Description:[id number] [employer] Salvation Ortholoc 3di 5.5mm 36mm Foot Ankle Cortical Low Profile [id number] - [id number] Implanted:Qty: 1 on 10/04/2021 by Mik Beckford MD at [facility] [place] Left: Foot [employer] [id number] / / Description:[id number] [employer] Ortholoc 3di 5.5mm 38mm Nonlocking Cortical Thread Low Profile [id number] - [id number] Implanted:Qty: 1 on 10/04/2021 by Mik Beckford MD at [facility] [place] Left: Foot Kadriana [id number] / / Orthohelix Maxtorque 7mm 80mm Cannulated Self Drill Foot Ankle Long Thread [id number] - [id number] Implanted:Qty: 1 on 10/04/2021 by Mik Beckford MD at [facility] [place] Left: Foot Orthohelix [id number] / / Insurance MEDICARE [facility] CHOICE PLUS [facility] CHO[facility] PLUS MEDICARE [facility] CHOICE PLUS Advance Directives For more information, please contact: [phone] * Full Code (Latest Code Status on File) Date Activated Date Inactivated Comments 10/04/2021 5:22 PM 10/05/2021 4:37 PM Care Teams Drapery Examiner Relationship Specialty Start Date End Date Andrzej Campos MD [address] [id number] PCP - General Family Medicine 03/30/21
--- OUTSIDE RECORDS SUMMARY | 2024-11-07 08:55 | XMS_ITS | Clinical Summary ---
Author Organization [facility] Address [address] [place] [phone] Phone Care Team Providers Care Agricultural Produ[employer] Agent Name Role Phone [facility], External Provider Primary Care Provider U navailable Allergies No known active allergies Medications traMADol (ULTRAM) 25 mg Oral Tab Take 50 mg by mouth every 6 hours as needed. Active oxyCODONE (ROXICODONE) 10 mg Oral tablet Take 7.5 mg by mouth every 8 hours as needed. Usually before bed 05/14/2010 Active cyclobenzaprine (FLEXERIL) 10 mg Oral tablet Take 10 mg by mouth 2 times daily as needed. 05/14/2010 Active gemfibroziL (LOPID) 600 mg tablet Take 600 mg by mouth 2 times daily. Active tamsulosin (FLOMAX) 0.4 mg capsule Take 0.4 mg by mouth daily. Active pregabalin (LYRICA) 75 mg CapsuleIndicatio ns:Leukopenia, unspecified type Take 1 Capsule (75 mg) by mouth every 12 hours. 60 Capsule 2 01/18/2021 Active Active Problems Problem Noted Date Diagnosed Date Peripheral neuropathy 10/16/2020 Normocytic anemia 10/16/2020 Leukopenia 09/25/2020 Social History Tobacco Use Types Packs/Day Years Used Date Smoking Tobacco: Never Smokeless Tobacco: Current Chew Comments:only chew if fishin g Alcohol Use Standard Drinks/Week Comments Yes 0 (1 standard drink = 0.6 oz pur e alcohol) 6 pack a day Sex and Gender Information Value Date Recorded Sex Assigned at Not on file Legal Sex Male 3:51 AM [employer]LL HAND[employer] Gender Identity Not on file Sexual Orientation Not on file Last Filed Vital Signs Vital Sign Reading Time Taken Comments Blood Pressure 126/72 02/11/2021 9:56 AM ROLL HANDLER Pulse 82 02/11/2021 9:56 AM ROLL HANDLER Temperature 36.5 C (97.7 F) 02/11/2021 9:56 AM ROLL HANDLER Respiratory Rate 16 06/01/2010 12:00 PM CDT Oxygen Saturation 97% 02/11/2021 9:56 AM ROLL HANDLER Inhaled Oxygen Concentration - - Weight 85.5 kg (188 lb 8 oz) 02/11/2021 9:56 AM ROLL HANDLER Height 175.3 cm (5' 9) 02/11/2021 9:56 AM ROLL HANDLER Body Mass Index 27.84 02/11/2021 9:56 AM ROLL HANDLER Plan of Treatment Health Maintenance Due Date Last Done Comments DTAP/TDAP/TD VACCINES (1 - Tdap) 12/23/1979 COLORECTAL SCREENING 2005 Colorectal Cancer Screening 2005 FIT-DNA Q 3 years 2005 FIT/FOBT Q 1 year 2005 Flex Sig/CT Colonography Q 5 years 2005 ZOSTER VACCINE (1 of 2) 2010 INFLUENZA VACCINE (#1) 2024 RSV VACCINE (60+ or ) (1 - 1-dose 75+ series) 12/23/2035 Medical Devices Implanted Type [employer] Device Identifier Shelf Expiration Date Model / Serial / Lot [id number] Bio-Tenodesis Screw Implanted:Qty: 1 on 05/28/2010 at [facility] [place] Left: Ankle [employer] 05/04/2012 [id number] / / [id number] Tenodesis Screw Implanted:Qty: 1 on 05/28/2010 at [facility] [place] Left: Ankle [employer] 11/05/2011 [id number] / / [id number] 3 Hole Plate Implanted:Qty: 1 on 05/28/2010 at [facility] Plate Left: Ankle [employer] 05/28/2011 [id number] / / Description:load 44sterile 0 05-27-2010 800mm Screw Implanted:Qty: 1 on 05/28/2010 at [facility] Screw Left: Ankle [employer] 05/28/2011 [id number] / / Description:load # 4603-24-2 011 [id number] Screw Implanted:Qty: 1 on 05/28/2010 at [facility] Screw Left: Ankle [employer] 05/28/2011 [id number] / / Description:load # 4603-24-2 011 Log [id number] - Orthohelix Implants - 1 - Screw N-Loc 2.4x20mm [id number] Implanted:Qty: 1 on 05/28/2010 at [facility] Screw Left: Ankle [employer] 05/28/2011 [id number] / / Description:load 44sterile 0 05-27-2010 2.4x18mm Khadar Screw Implanted:Qty: 1 on 05/28/2010 at [facility] Screw Left: Ankle [employer] 05/28/2011 [id number] / / Description:load 44sterile 0 05-27-2010 [id number] Compression Staple Implanted:Qty: 1 on 05/28/2010 at [facility] Left: Ankle [employer] 05/28/2011 [id number] / / Description:load 46sterile 0 05-27-2010 Insurance MEDICARE PART A AND B [facility] [employer] [id number] MEDICARE PART A AND B [facility] [id number] Advance Directives For more information, please contact: [phone] * Full Code (Latest Code Status on File) Date Activated Date Inactivated Comments 05/28/2010 3:59 PM 06/01/2010 5:13 PM * Full Code Date Activated Date Inactivated Comments 05/28/2010 9:25 AM 05/28/2010 3:59 PM * Full Code Date Activated Date Inactivated Comments 05/28/2010 7:22 AM 05/28/2010 9:25 AM Care Teams [employer] Agent Relationship Specialty Start Date End Date [facility], External Provider [address] [place] [address] PCP - General 05/14/10
--- OUTSIDE RECORDS SUMMARY | 2024-11-07 08:55 | XMS_ITS | Patient Health Record ---
Author Organization [facility] Address [address] [place], [place] [id number] Care Team Providers Care Surveillance Specialist Name Role Phone RadhaGORDON saunders Unavailable [phone] Reason For Referral No Information Plan Of Treatment No Information Insurance Providers Payer Name Payer Address Payer Phone Subscriber Number Group Number Insured Name Patient Relationship to Insured Coverage Start Date Coverage End Date [facility] [address] [address] [place] [address] [id number] EVA MAI Spouse - patient is the spouse of the insured Medicare Part [place] [address] [place] [phone] [id number] FRANTZ MAI Self - patient is the insured
[2024-11-07 08:58] LABS: Hematocrit 41.3 % (40.0-54.0); Hemoglobin 13.6 g/dL (14.0-18.0); Immature Granulocyte Percent A 0.3 % (0.0-0.0); Lymphocytes Absolute Auto 1.64 K/mm3 (1.10-4.50); Mean Corpuscular HGB Conc 32.9 g/dL (32-36); Mean Corpuscular Hemoglobin 29.1 pg (27.0-31.0); Mean Corpuscular Volume 88.2 fL (78.0-102.0); Nucleated Red Blood Cells Absolute Auto 0.00 K/mm3 (0.00-0.00); Nucleated Red Blood Cells Perc 0.0 % (0-0.0); Platelet Count Result 255 K/mm3 (150-420); Red Blood Count 4.68 M/mm3 (4.70-6.10); White Blood Count 5.9 K/mm3 (4.8-10.8)
[2024-11-07 09:46] LABS: Alanine Aminotransferase 33 U/L (6-50); Albumin Level 5.1 g/dL (3.5-5.1); Alkaline Phosphatase 52 U/L (38-126); Anion Gap 13 mmol/L (4-12); Aspartate Amino Transferase 31 U/L (17-59); Bilirubin,Total 0.7 mg/dL (0.2-1.3); Blood Urea Nitrogen 17 mg/dL (9-20); Calcium 10.4 mg/dL (8.4-10.2); Carbon Dioxide 26 mmol/L (22-30); Chloride 104 mmol/L (98-107); Cholesterol 195 mg/dL (0-200); Estimated Glomerular Filt Rate > 60; Glucose 105 mg/dL (65-110); HDL Direct 57 mg/dL; Osmolality Calculated 297 mOsm/kg (285-295); Potassium 4.7 mmol/L (3.4-5.0); Sodium 143 mmol/L (137-145); Triglycerides 142 mg/dL (<150)
[2024-11-07 09:47] LABS: Total Protein 7.9 g/dL (6.3-8.2)
[2024-11-07 10:17] LABS: Prostate Specific Antigen 0.8 ng/mL (< OR = 4.0); Thyroid Stimulating Hormone 0.947 uIU/mL (0.465-4.680)
== END 2024-11-07 08:47 | disposition home or self-care (01) ==
LOC: CHSLAB 08:48
PROVIDERS: PCP Family Medicine; Visit Provider Family Medicine
DX: E78.1 Pure hyperglyceridemia (principal); Z12.5 Encounter for screening for malignant neoplasm of prostate
CPT/HCPCS: 36415; 80053; 80061; 84153; 84443; 85025; G0103